=== PATIENT | female | born 1970 | race Caucasian/White ===

== ENCOUNTER 2018-05-10 20:46 | Emergency (ER) | payer BC ==
[~2018-05-10] VITALS: Ht 162.6 cm; Wt 52.2 kg
[~2018-05-10 20:46] MED LIST: ATORVASTATIN CA40 MG; BACTRIM DS TAB1 EACH; CIPROFLOXACIN500 M1 PO; CLEOCIN HCL150 MG PO; LEXAPRO 10 MG T10 M2; PYRIDIUM200 MG PO; XANAX 0.25 MG0.25 MG; ZOLOFT 50 MG TA50 MG
[2018-05-10] MEDS ORDERED: CRESTOR10 MG PO (20:51)
[2018-05-10] MEDS ORDERED: ADDERALL 10 MG10 MG PO (20:51)
[2018-05-10] MEDS ORDERED: ZOLOFT25 MG PO (20:52)
[2018-05-10 21:09] LABS: ABSOLUTE LYMPHOCYTES 1.5 thou/uL (0.8-5.3); ABSOLUTE MONOCYTES 0.4 thou/uL (0.0-1.2); ABSOLUTE NEUTROPHILS 5.1 thou/uL (1.6-8.1); BASOPHILS 0.5 %; EOSINOPHILS 0.2 %; HEMATOCRIT 37.6 % (37.0-47.0); LYMPHOCYTES 21.6 %; MCH 31.4 pg (26.0-34.0); MCHC 34.5 g/dL (28.0-37.0); MCV 90.9 fL (80.0-100.0); MONOCYTES 5.1 %; MPV 7.9 fl. (7.2-11.1); NUCLEATED RBCS 0 /100WBC; PLATELET COUNT* 251 thou/uL (150-400); POLYS 72.6 %; RBC 4.14 mil/uL (4.20-5.00); RDW-CV 13.3 % (10.5-14.5)
[2018-05-10 21:19] LABS: CALCIUM 8.6 mg/dL (8.5-10.1); CREATININE 0.9 mg/dL (0.6-1.3); POTASSIUM 3.1 mmol/L (3.5-5.1)
[2018-05-10 21:23] LABS: ALBUMIN 3.4 g/dL (3.4-5.0); TOTAL BILIRUBIN 0.5 mg/dL (<0.1-1.0); TOTAL PROTEIN 6.7 g/dL (6.4-8.2)
[2018-05-10 21:52] LABS: URINE BILIRUBIN NEGATIVE (Negative); URINE BLOOD NEGATIVE (Negative); URINE CLARITY CLEAR; URINE COLOR YELLOW; URINE GLUCOSE-RANDOM NEGATIVE (Negative); URINE LEUKOCYTES-REFLEX NEGATIVE (Negative); URINE NITRITE-REFLEX NEGATIVE (Negative); URINE PROTEIN NEGATIVE (Negative); URINE SPECIFIC GRAVITY 1.015 (1.005-1.030); URINE UROBILINOGEN 0.2 E.U./dl (0.2-1.0)
[2018-05-10 21:58] LABS: URINE KETONES 3+ (Negative)
[2018-05-10 22:01] LABS: URINE REDUCING SUBSTANCE NEGATIVE (Negative)
[2018-05-10] MEDS ORDERED: ZOFRAN ODT4 MG PO (22:01)
[2018-05-10] MEDS ORDERED: POTASSIUM20 PO (22:01)
[2018-05-10 22:46] VITALS: BP 135/69
== END 2018-05-10 23:49 | disposition home or self-care (01) ==
LOC: M.ERS 20:46
PROVIDERS: Nurse Practitioner Family
DX: E87.6 Hypokalemia (principal); R11.2 Nausea with vomiting, unspecified; Z90.710 Acquired absence of both cervix and uterus